=== PATIENT | female | born 1985 | race Caucasian/White ===

== ENCOUNTER 2021-03-26 13:23 | Outpatient (REF) | payer BC, SELFPAY | END 2021-03-26 13:24 | disposition home or self-care (01) | LOC: HO.LNP 13:23 | PROVIDERS: Visit Provider Physician Assistant Medical | DX: Z20.822 Contact with and (suspected) exposure to COVID-19 (principal); J02.9 Acute pharyngitis, unspecified | CPT/HCPCS: 87071; U0003; U0005 ==

== ENCOUNTER 2023-05-26 09:25 | Outpatient (AMB) | payer BC, SELFPAY ==
--- NOTE | 2023-05-26 10:09 | MHC.OFFWIV ---
Intake Vital Signs 05/26/23 10:16 Height 5 ft 2 in Weight 134 lb 6 oz BMI 24.6 BP 122/70 Blood Pressure Location Lt brachial Position Sitting Pulse 76 Pulse Source Pulse Oximeter Temp 97.9 F Temp Source Temporal Artery Scan Pulse Oximetry (%) 99 Intake Visit Reasons: EP RT Knee pain 3 months Intake Note: pt is here for c/o right knee pain for 3x months, denies injury, denies redness or swelling Patient Tobacco Use Status: Never used Tobacco Allergies Sulfa (Sulfonamide Antibiotics) Adverse Reaction (Verified 05/26/23 10:12) rash Do you need a note to return to daycare/school/sports/work: Yes HPI HPI Comments History of Present Illness Details This is a 38-year-old female who presents to the office complaining of right knee pain times 3 months. Patient denies any specific/known trauma or injury to the right knee. She states the pain is mostly located on the medial and posterior aspect of her knee. She states the pain is worsened with extension of her knee as well as rotation/twisting of her knee. She denies any numbness/weakness/paresthesias of her right lower extremity. She denies any calf swelling or calf pain. She denies any erythema of the knee but does note some mild swelling. [facility]LY [facility] Social History Patient Tobacco Use Status: Never used Tobacco Review of Systems Const All systems reviewed & are unremarkable except as noted in HPI and below Reports no additional complaints Eyes Reports no additional complaints ENT Reports no additional complaints Card Reports no additional complaints Resp Reports no additional complaints GI Reports no additional complaints Reports no additional complaints Musc Reports no additional complaints Skin/Breast Reports system reviewed and no additional complaints, except as documented Neuro Reports no additional complaints Psych Reports no additional complaints Endo Reports no additional complaints Ignacio/Lymph Reports no additional complaints Aller/Immun Reports no additional complaints Physical Exam Vital Signs: Last Vital Signs Temp 97.9 F 05/26/23 10:16 Pulse 76 05/26/23 10:16 BP 122/70 05/26/23 10:16 Pulse Ox 99 05/26/23 10:16 BMI result Body Mass Index 24.6 Const Other: Vital signs reviewed. Constitutional: Non-toxic appearing. No acute distress. Well-developed and well-nourished. HEENT: Normocephalic and atraumatic. Skin: Warm and dry. No rashes or lesions noted. Neck: Full and painless range of motion. No cervical lymphadenopathy. Cardio: Regular rate and rhythm. No murmurs, gallops, or rubs. No JVD. Pulmonary: No respiratory distress. No accessory muscle usage. Gastrointestinal: Soft, nontender, and nondistended in all 4 quadrants. Musculoskeletal: There is minimal swelling to the medial aspect of the right knee without ecchymosis or erythema. She has full range of motion of the right knee with pain. There is no significant focal bony tenderness to palpation of the right knee. There is no appreciable ligamentous instability. No calf swelling or tenderness to palpation. Neuro: Alert and oriented x4. Cranial nerves 2-12 grossly intact. No focal deficits appreciated. Psych: Normal mood and affect. Assessment & Plan Assessment & Plan (1) Right knee pain: Code(s): M25.561 - Pain in right knee Qualifiers: Chronicity: chronic Qualified Code(s): M25.561 - Pain in right knee; G89.29 - Other chronic pain Plan: This is a 38-year-old female who presented to the office complaining of right knee pain for the past 3 months without specific trauma/injury. On physical examination, there is minimal swelling to the medial aspect of her right knee and the patient has full but painful range of motion of the right knee. There is no ecchymosis or erythema. Differential diagnosis includes sprain/strain versus ruptured Lopez's cyst versus ligamentous/meniscus injury. An x-ray of the right knee was obtained, which is negative for acute fracture or dislocation on my read. The patient is PERC negative and I have extremely low suspicion for deep vein thrombosis; however, it is possible that patient has a ruptured Lopez's cyst given posterior pain/swelling. A non urgent ultrasound venous duplex of the right lower extremity was ordered for further evaluation. I otherwise recommended rest/activity modification, ice/heatto the area, elevation of the extremity, and continue with acetaminophen/ibuprofen for pain management as long as patient has no medical contraindications. Orthopedic referral was provided for further evaluation and management. Patient was advised to follow-up here or proceed directly to the emergency room if she were to develop any persistent or worsening symptoms. Patient verbalizes her understanding and she is in agreement with the plan. Orders: Orders US venous duplex LE RT Today M79.89 - Other specified soft tissue disorders Coding Level of Care Code Est Pt Level 3 (87421) Diagnoses Chronic pain of right knee M25.561; G89.29 Chronicity: chronic
[2023-05-26 10:16] VITALS: BP 122/70; PULSE 76; TEMP 36.6; O2SAT 99; BMI 24.6
== END 2023-05-26 11:01 | disposition home or self-care (01) ==
PROVIDERS: PCP Internal Medicine; Visit Provider Physician Assistant Medical
DX: M25.561 Pain in right knee (principal); G89.29 Other chronic pain
CPT/HCPCS: 99213

== ENCOUNTER 2023-05-26 10:37 | Outpatient (REF) | payer BC, SELFPAY ==
--- NOTE | ~2023-05-26 | XR_ITS ---
EXAMINATION: XR KNEE, RIGHT CLINICAL INFORMATION: Pain COMPARISON: None available. TECHNIQUE: Four views of the right knee. FINDINGS: No fracture or joint effusion. Alignment is anatomic. Joint spaces are maintained. No abnormal soft tissue calcification. XR/XR knee RT 4V IMPRESSION: Normal right knee.
== END 2023-05-26 10:38 | disposition home or self-care (01) ==
LOC: HO.HMGCX 10:37
PROVIDERS: PCP Internal Medicine; Visit Provider Physician Assistant Medical
DX: M25.561 Pain in right knee (principal)
CPT/HCPCS: 73564

== ENCOUNTER 2023-06-01 14:00 | Outpatient (REF) | payer BC, SELFPAY ==
--- NOTE | ~2023-06-01 | US_ITS ---
EXAMINATION: US EXTREMITY NONVASCULAR, RIGHT POPLITEAL FOSSA CLINICAL INFORMATION: Right posterior knee pain for 3 months, spontaneous, question Lopez's cyst. COMPARISON: None available. TECHNIQUE: Targeted ultrasound images were obtained by the abrasive grader helper of the area of concern as indicated by the patient in the right popliteal fossa. Images were obtained of the asymptomatic left popliteal fossa for comparison. Radiologist was not in attendance. Images were later provided for interpretation. . FINDINGS: No discrete fluid collection is identified in the right popliteal fossa. The popliteal veins and arteries appear patent. No thrombus identified in the right popliteal vein. US/US extremity nonvascular musa IMPRESSION: No discrete fluid collection is identified in the right popliteal fossa.
== END 2023-06-01 14:01 | disposition home or self-care (01) ==
LOC: HO.HMGCX 14:00
PROVIDERS: PCP Internal Medicine; Visit Provider Physician Assistant
DX: M79.604 Pain in right leg (principal)
CPT/HCPCS: 76882

== ENCOUNTER 2023-06-20 07:46 | Outpatient (AMB) | payer BC, SELFPAY ==
--- NOTE | 2023-06-20 07:53 | A.OFFVIS_ITS ---
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 Patient reports knee pain has been present for over 3 months. She [place] [facility] [place] xrays were done and US was obtained. She cannot recall any significant injury. Pain is felt in the posterior aspect of the knee, her pain is felt most of the day but is worse by the end of the day. After being active for most of the day she has increased pain and stiffness after sitting. No previous therapies tried. Occasionally will wear a brace and will take Ibuprofen PRN when pain is significant. 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 She was seen at walk-in clinic where x-rays were performed and US was obtained. She states she has constant pain at the posterior aspect of her knee which gets worse by the end of the day. She performs a lot of climbing, bending, and ladder use at work and experiences increased pain and stiffness on sitting and walking after being active most of the day. She occasionally wears a brace and takes ibuprofen PRN when her pain is significant. She cannot recall any significant injury. She has not tried any previous treatment. She does not have a history of diabetes. [facility] Surgical History (Updated 06/20/23 @ 08:04 by Aimee Restrepo CMA) H/O section History of tonsillectomy Social History (Updated 06/20/23 @ 08:04 by Aimee Restrepo CMA) Patient Tobacco Use Status: Never used Tobacco Current occupational status: employed Current occupation: [employer] Review of Systems Const All systems reviewed & are unremarkable except as noted in HPI and below Physical Exam Vital Signs: BMI result Body Mass Index 24.5 Const General: cooperative, healthy appearing, comfortable, no acute distress, well developed and alert Orientation/consciousness: patient oriented x3 HEENT Head: Yes normal to inspection, Yes normocephalic and Yes atraumatic Eyes General: appearance normal, both eyes and all related structures Resp Effort & Inspection: normal respiratory effort and able to speak in complete sentences Cardio Rate: regular rate Peripheral pulses: Peripheral pulses 2+ throughout GI Palpation (GI): Soft to palpation Skin Lesions: no lesions Rashes: no rashes Neuro General: patient oriented x3 Extrem Other: Right knee: Skin intact, no erythema or joint effusion. Tenderness over the pes bursa. Full ROM without crepitus. Negative Maia?s. No ligamentous laxity. NVI. Results Reviewed Results Reviewed: Xrays were obtained in the office today and personally reviewed by me of the right knee show mild patella overlap. Joint spaces well preserved Assessment & Plan Assessment & Plan (1) Pes anserine bursitis: Code(s): M70.50 - Other bursitis of knee, unspecified knee (2) Patella-femoral syndrome: Code(s): M22.2X9 - Patellofemoral disorders, unspecified knee Qualifiers: Laterality: right Qualified Code(s): M22.2X1 - Patellofemoral disorders, right knee (3) Patellofemoral arthralgia of right knee: Code(s): M25.561 - Pain in right knee Plan We discussed options which include PT, NSAIDs and injections. The patient will defer on the injection today and proceed with PT and NSAIDs. If symptoms persist, the patient will contact me for an injection, otherwise, PRN. Orders: Orders XR knee RT 1V Today M25.561 - Pain in right knee XR knee standing BI Today M25.561 - Pain in right knee, M25.562 - Pain in left knee PT Evaluation and Treatment Today M25.561 - Pain in right knee, M70.50 - Other bursitis of knee, unspecified knee Patient Instructions: Scribed for Kirit Cancino PA-C, by Dami Tanner medical records analyst, on 06/20/2023 at 8:00 AM EST. I, Kirit Cancino PA-C, have personally reviewed and agree with the information entered by the scribe. Coding Level of Care Code New Pt Level 3 (66846) Diagnoses Pes anserine bursitis M70.50 Patellofemoral pain syndrome of right knee M22.2X1 Laterality: right Patellofemoral arthralgia of right knee M25.561
[2023-06-20 08:01] VITALS: BMI 24.5
== END 2023-06-20 08:35 | disposition home or self-care (01) ==
PROVIDERS: PCP Internal Medicine; Visit Provider Physician Assistant
DX: M70.51 Other bursitis of knee, right knee (principal); M22.2X1 Patellofemoral disorders, right knee; M25.561 Pain in right knee
CPT/HCPCS: 99203

== ENCOUNTER 2023-06-20 10:45 | Outpatient (REF) | payer BC, SELFPAY ==
--- NOTE | ~2023-06-20 | XR_ITS ---
EXAMINATION: X-RAY AP STANDING BOTH KNEES X-RAYS [place] VIEW RIGHT KNEE CLINICAL INFORMATION: Pain. COMPARISON: Radiograph right knee to 07/11/2023. TECHNIQUE: AP bilateral standing view of the knees was obtained. [place] view of the right knee was obtained. FINDINGS: No fractures or subluxation. Joint spaces are maintained. No osseous erosions or unusual soft tissue calcifications. No significant soft tissue abnormality. XR/XR knee RT 1V IMPRESSION: Normal radiographic examinations.
--- NOTE | ~2023-06-20 | XR_ITS ---
EXAMINATION: X-RAY AP STANDING BOTH KNEES X-RAYS [place] VIEW RIGHT KNEE CLINICAL INFORMATION: Pain. COMPARISON: Radiograph right knee to 07/11/2023. TECHNIQUE: AP bilateral standing view of the knees was obtained. [place] view of the right knee was obtained. FINDINGS: No fractures or subluxation. Joint spaces are maintained. No osseous erosions or unusual soft tissue calcifications. No significant soft tissue abnormality. XR/XR knee standing BI IMPRESSION: Normal radiographic examinations.
== END 2023-06-20 10:46 | disposition home or self-care (01) ==
LOC: HO.HOSX 10:45
PROVIDERS: Visit Provider Physician Assistant
DX: M22.2X1 Patellofemoral disorders, right knee (principal); M25.561 Pain in right knee
CPT/HCPCS: 73560; 73565

== ENCOUNTER 2025-02-13 14:42 | Outpatient (AMB) | payer BC, SELFPAY ==
--- NOTE | 2025-02-13 14:55 | MHC.PC.OV ---
Vital Signs 02/13/25 15:00 Height 5 ft 3.46 in Weight 132 lb 8 oz BMI 23.1 BP 132/78 Blood Pressure Location Lt brachial Position Sitting Pulse 97 Pulse Source Pulse Oximeter Temp 97.4 F Temp Source Temporal Artery Scan Pulse Oximetry (%) 99 Oxygen Delivery Method Room Air Intake Visit Reasons: Establish Care Allergies Sulfa (Sulfonamide Antibiotics) Adverse Reaction (Verified 02/13/25 15:13) rash Medication List - Last Reconciled 02/13/25 by Glenny Espinoza PA-C No Known Home Meds Tobacco use date assessed: 02/13/25 Dental Screening Dental Screen Date: 02/13/25 Did you have a dental visit in the last 12 months?: Yes Was dental information given to patient?: Patient has dentist HPI Establish Care HPI Details The patient is a 40-year-old female presenting for an annual physical exam in addition to evaluate her fatigue. The patient reports persistent fatigue, feeling tired regardless of sleep duration or quality. She has not had a physical examination in approximately nine years, attributing this to being busy with family responsibilities. The patient has a history of section and tonsillectomy, with no other significant medical history reported. The patient expresses concerns about potential ADHD, particularly after her son was diagnosed, and she relates to some of his symptoms. She experiences anxiety, which she suspects may be linked to her inability to shut her brain off. Family history includes hypertension and prostate cancer in her father, with no known history of breast or colon cancer. The patient denies any allergies except for sulfa drugs. Preventative care measures discussed include scheduling a mammogram and considering an early colonoscopy due to lifelong abdominal issues, although these have improved recently with dietary changes. Social History - Employment: Works at [employer], involves physical activity such as climbing ladders. - Family: with two children, ages 14 and 9. - Exercise: Regular physical activity through work duties. [facility] Medical History (Updated 02/13/25 @ 15:44 by Glenny Espinoza PA-C) Preventative health care ADHD Fatigue Annual physical exam Anxiety Surgical History H/O section History of tonsillectomy Family History Mother HTN (hypertension) Father Prostate cancer Social History Housing: House Patient Tobacco Use Status: Never used Tobacco service: No Current occupational status: employed Current occupation: [employer] Cognitive needs: No Hearing needs: No Vision needs: Yes (rx glasses) Questionnaire PHQ-9 Over the last 2 weeks, how often have you been bothered by any of the following problems? 1. Little interest or pleasure in doing things: several days 2. Feeling down, depressed, or hopeless: several days 3. Trouble falling or staying asleep, or sleeping too much: more than half the days 4. Feeling tired or having little energy: nearly every day 5. Poor appetite or overeating: not at all 6. Feeling bad about yourself - or that you are a failure or have let yourself or your family down: not at all 7. Trouble concentrating on things, such as reading the newspaper or watching television: more than half the days 8. Moving or speaking so slowly that other people could have noticed. Or the opposite - being so fidgety or restless that you have been moving around a lot more than usual: not at all 9. Thoughts that you would be better off or of hurting yourself in some way: not at all Total score: 9 Depression Screening Interpretation: Positive Depression Screening Follow-up: Other (referral placed ) Depression Screening Done: Yes 66807 - PHQ-9 Billing: Yes Source: Developed by Drs. Tremayne Stinson, Wanda Andrews, Robert Moses and colleagues, with an educational curt from [employer]. Thrive Questionnaire Date Thrive assessed: 02/13/25 I am a: Patient What is your living situation today?: I have a steady place to live Within the past 12 months, did the food you bought not last and you didn't have the money to get more?: Never true Within the past 12 months, did you worry whether your food would run out before you got money to buy more?: Never true Do you have trouble paying for medicines?: No Do you have trouble getting transportation to medical appointments?: No Do you have trouble paying your heating and electricity bill?: No Do you have trouble taking care of your child, family member or friend?: No Do you have trouble with day-to-day activities such as bathing, preparing meals, shopping, managing finances, etc.?: No Are you currently unemployed and looking for a job?: No Are you interested in more education?: No Please select the resources that you would like help with: None THRIVE Score: 0 AUDIT C Alcohol Use Questionnaire (AUDIT-C) 1. How often do you have a drink containing alcohol?: Never Total Score: 0 Score Reviewed/Action Taken: No GLENDY-7 AMB Questionnaire GLENDY-7 Date GLENDY - 7 assessed: 02/13/25 Feeling nervous, anxious, or on edge: 2 = More than half the days Not being able to stop or control worryin = More than half the days Worrying too much about different things: 2 = More than half the days Trouble relaxin = More than half the days Being so restless that it is hard to sit still: 1 = Several days Becoming easily annoyed or irritable: 2 = More than half the days Feeling afraid as if something awful might happen: 1 = Several days Total GLENDY-7 score (0-4 normal; 5-9 mild; 10-14 moderate; 15-21 severe): 12 Source: Developed by Drs. Tremayne Stinson, Wanda Andrews, Robert Moses and colleagues, with an educational curt from [employer]. GLENDY-7 Assessment Billing GLENDY-7 Assessment Tool: GLENDY-7 Assessment 23494 Review of Systems Const Details: - General: Reports persistent fatigue. - Cardiovascular: Reports palpitations during physical exertion. Denies chest pain or syncope. - Respiratory: Denies dyspnea or wheezing. - Neurological: Reports difficulty shutting brain off, possibly related to anxiety. - Gastrointestinal: Reports lifelong abdominal issues, improved with dietary changes. All systems reviewed & are unremarkable except as noted in HPI and below Physical exam (Primary Care) Vital Signs: Last Vital Signs Temp 97.4 F 02/13/25 15:00 Pulse 97 02/13/25 15:00 BP 132/78 02/13/25 15:00 Pulse Ox 99 02/13/25 15:00 Oxygen Delivery Method Room Air 02/13/25 15:00 Care Plan Goal for BP management: <140/90 at Goal BMI result Body Mass Index 23.1 normal BMI Tobacco/Smoking Status: Tobacco use Status Tobacco use date assessed 02/13/25 02/13/25 14:59 Patient Tobacco Use Status Never used Tobacco 02/13/25 14:59 Depression Screening Interpretation: Positive Depression Screening Follow-up: Other (referral placed ) Thrive Assessment: Date of Thrive Assessment Date Thrive assessed 02/13/25 02/13/25 14:59 Const Other: Appearance: Alert. Oriented X3. No acute distress. Head: Normal external exam. Normocephalic. Atraumatic. Eyes: Pupils are equal, round, and reactive to light. Extraocular movements intact. Conjunctiva and sclera normal. Eyelids normal. Ears: External auditory canal normal. Tympanic membranes normal. Minimal wax noted. Throat: Pharynx normal. Uvula midline. Moist mucous membranes. No trouble swallowing. Neck: Normal inspection. Neck supple. Full range of motion. No adenopathy. Thyroid Normal. No meningeal signs. No neck mass noted. No nodules felt. Cardiovascular: Heart rate elevated but normal rhythm. Heart sound normal. No murmurs noted. Pulses normal throughout. Respiratory: No respiratory distress. Painless inspiration. Breath sounds normal. No wheezes/rales/rhonchi noted. Chest nontender. No accessory muscle usage noted or decreased air movement noted. Abdomen: Soft and nontender. Bowel sounds normal in all 4 quadrants. No distention noted. No organomegaly noted. No visible injury noted. Back: No costovertebral angle tenderness. Full range of motion noted. Skin: Skin warm and dry. Normal skin color. Normal skin turgor. No rashes/lesions/lacerations noted. Extremities: No lower extremity edema. Extremities exhibit normal range of motion. Extremities nontender. No swelling or calf tenderness. Neuro: Oriented X 3. No motor deficit. No sensory deficit. Reflexes normal. Office Procedures Flu Questionnaire Does the patient have a severe egg allergy?: No Does the patient have severe life threatening allergies?: No Does the patient have a fever or illness today?: No Has the patient ever had Guillain-Loretto Syndrome?: No Has the patient ever had any past reaction to a flu shot?: No Immunizations Fluarix [id number] (PF) 45 mcg (15 mcg x 3)/0.5 mL IM syringe Performing Provider: Glenny Espinoza PA-C Performing Location: [facility] – [place] [facility] Administered by: Estelita Lilly CMA on 02/13/25 15:10 Dose Route Admin Location Dispensed Lot Number Expiration Date NDC Habilitation Worker 0.5 mL IM Left Deltoid 0.5 mL [id number] 10/20/25 [id number] [employer] VIS Given Date VIS Provided VIS Publication Date 02/13/25 Single Vaccine 24 Eligibility Eligibility Date Funding Source Not [facility] Eligible 02/13/25 Private Coding Level of Care Code New Pt Level 4 (19695) New Pt Prev Care 40-64y(11985) Diagnoses Annual physical exam Z00. Fatigue R53.83 Anxiety F41.9 ADHD F90.9 Preventative health care Z00. Additional Codes PHQ-9 - 53742 - PHQ-9 Billing: Yes ([id number]) GLENDY-7 Assessment Billing - GLENDY-7 Assessment Tool: GLENDY-7 Assessment 16708 ([id number]) Assessment & Plan Assessment & Plan (1) Annual physical exam: Code(s): Z00.00 - Encounter for general adult medical examination without abnormal findings Category: Medical (2) Fatigue: Code(s): R53.83 - Other fatigue Category: Medical Plan: The plan includes comprehensive blood work to assess potential causes of fatigue, including CBC, CMP, thyroid function tests, and hormone levels. Additional tests include Lyme disease screening and a urinalysis to check for blood, protein, and glucose. (3) Anxiety: Code(s): F41.9 - Anxiety disorder, unspecified Category: Medical Plan: The patient will be referred to a psychiatrist for evaluation and management of anxiety, with consideration of ADHD assessment. (4) ADHD: Code(s): F90.9 - Attention-deficit hyperactivity disorder, unspecified type Category: Medical Plan: Referral to a psychiatrist for ADHD assessment is planned, with follow-up based on the psychiatrist's recommendations. (5) Preventative health care: Code(s): Z00.00 - Encounter for general adult medical examination without abnormal findings Category: Medical Plan: A mammogram is recommended as part of routine preventative care due to the patient's age. A referral for a colonoscopy is considered due to the patient's history of abdominal issues, despite recent improvement with dietary changes. Plan Plan Patient was informed and verbally consented to the use of an ambient scribe for clinic note documentation during this visit. 1. Fatigue The plan includes comprehensive blood work to assess potential causes of fatigue, including CBC, CMP, thyroid function tests, and hormone levels. Additional tests include Lyme disease screening and a urinalysis to check for blood, protein, and glucose. 2. Anxiety The patient will be referred to a psychiatrist for evaluation and management of anxiety, with consideration of ADHD assessment. 3. Adhd Assessment Referral to a psychiatrist for ADHD assessment is planned, with follow-up based on the psychiatrist's recommendations. 4. Preventative Care: Mammogram A mammogram is recommended as part of routine preventative care due to the patient's age. 5. Preventative Care: Colonoscopy A referral for a colonoscopy is considered due to the patient's history of abdominal issues, despite recent improvement with dietary changes. During the visit, we discussed the patient's persistent fatigue and the need for comprehensive blood work to identify potential causes, including thyroid function and hormone levels. We also addressed the patient's concerns about anxiety and potential ADHD, leading to a referral for psychiatric evaluation. Preventative care measures, including a mammogram and possible early colonoscopy, were recommended based on age and medical history. Orders: Orders Complete Blood Count Auto Diff Today Z00.00 - Encounter for general adult medical examination without abnormal findings Hemoglobin A1c Today Z00.00 - Encounter for general adult medical examination without abnormal findings Lipid Panel Today Z00.00 - Encounter for general adult medical examination without abnormal findings Liver Panel Today Z00.00 - Encounter for general adult medical examination without abnormal findings Vitamin D 25-OH Total Today Z00.00 - Encounter for general adult medical examination without abnormal findings TSH reflex Free T4 Today Z00.00 - Encounter for general adult medical examination without abnormal findings UA CC w/rflx Micro + Cult Today Z00.00 - Encounter for general adult medical examination without abnormal findings Testosterone, Free/Total Today Z00.00 - Encounter for general adult medical examination without abnormal findings Progesterone Today Z00.00 - Encounter for general adult medical examination without abnormal findings Lyme IgG/IgM w/reflex to WB Today Z00.00 - Encounter for general adult medical examination without abnormal findings Influenza [id number] Immunization Today Z23 - Encounter for immunization C Reactive Protein Today Z00.00 - Encounter for general adult medical examination without abnormal findings Comprehensive [place]. Panel Fast Today Z00.00 - Encounter for general adult medical examination without abnormal findings Magnesium Today Z00.00 - Encounter for general adult medical examination without abnormal findings Vitamin B12 and Folate Today Z00.00 - Encounter for general adult medical examination without abnormal findings DHEA Sulfate Today Z00.00 - Encounter for general adult medical examination without abnormal findings Dihydrotestosterone Today Z00.00 - Encounter for general adult medical examination without abnormal findings Estrogen Today Z00.00 - Encounter for general adult medical examination without abnormal findings Lutenizing Hormone Today Z00.00 - Encounter for general adult medical examination without abnormal findings Prolactin Today Z00.00 - Encounter for general adult medical examination without abnormal findings MM screening mammo BI Today Z12.31 - Encounter for screening mammogram for malignant neoplasm of breast Referrals Psychiatry Outpatient Consultation Service F41.9 - Anxiety disorder, unspecified Gastroenterology Referral Z12.11 - Encounter for screening for malignant neoplasm of colon Patient Instructions: - Schedule and complete blood work as instructed, ensuring fasting for 10-12 hours prior. - Await contact from referred specialists for psychiatric evaluation and colonoscopy scheduling. - Follow up with the clinic if no contact is made within the expected timeframe. - Maintain current dietary changes that have improved abdominal symptoms.
[2025-02-13 15:00] VITALS: BP 132/78; PULSE 97; TEMP 36.3; O2SAT 99; BMI 23.1
== END 2025-02-13 15:29 | disposition home or self-care (01) ==
LOC: HO.HMCSH 14:42
PROVIDERS: PCP Physician Assistant Medical; Visit Provider Physician Assistant Medical
DX: Z00.00 Encounter for general adult medical examination without abnormal findings (principal); R53.83 Other fatigue; F41.9 Anxiety disorder, unspecified; F90.9 Attention-deficit hyperactivity disorder, unspecified type; Z23 Encounter for immunization

== ENCOUNTER → 2025-02-13 14:42 | Outpatient (BNVA) | payer BC, SELFPAY | PROVIDERS: PCP Physician Assistant Medical; Visit Provider Physician Assistant Medical | DX: Z00.00 Encounter for general adult medical examination without abnormal findings (principal); R53.83 Other fatigue; I10 Essential (primary) hypertension; F41.9 Anxiety disorder, unspecified; F90.9 Attention-deficit hyperactivity disorder, unspecified type; Z23 Encounter for immunization | CPT/HCPCS: 90471; 90656; 96127 ==

== ENCOUNTER 2025-02-19 10:26 | Outpatient (REF) | payer BC, SELFPAY | END 2025-02-19 10:27 | disposition home or self-care (01) | LOC: HO.MAMMO 10:26 | PROVIDERS: PCP Physician Assistant Medical; Visit Provider Physician Assistant Medical | DX: Z12.31 Encounter for screening mammogram for malignant neoplasm of breast (principal) | CPT/HCPCS: 77063; 77067 ==

== ENCOUNTER → 2025-02-19 10:45 | Outpatient (BNV) | payer BC, SELFPAY | PROVIDERS: PCP Physician Assistant Medical; Visit Provider Radiology Body Imaging | DX: Z12.31 Encounter for screening mammogram for malignant neoplasm of breast (principal) | CPT/HCPCS: 77063; 77067 ==

== ENCOUNTER 2025-02-21 10:30 | Outpatient (REF) | payer BC, SELFPAY ==
[2025-02-21 13:29] LABS: MANUAL DIFF FLAG NO
[2025-02-21 13:33] LABS: Hematocrit 40.0 % (37.0-47.0); Hemoglobin 13.2 g/dl (12.0-16.0); Imm Gran Abs Auto 0.02 X10*3/uL (0.00-0.03); Imm Gran Pct Auto 0.4 % (0.0-0.4); Lymphocytes Absolute Auto 1.8 X10*3/uL (1.2-4.9); Mean Corpuscular HGB Conc 33.0 g/dl (31.0-35.0); Mean Corpuscular Hemoglobin 29.5 pg (27.0-33.0); Mean Corpuscular Volume 89.5 fL (80.0-98.0); NRBC Abs Auto 0.000 X10*3/uL (0.0-0.012); NRBC Pct Auto 0.0 /100WBC (0.0-0.2); Platelet Count 318 X10*3/uL (160-400); Red Blood Count 4.47 X10*6/uL (4.20-5.50); White Blood Count 5.6 X10*3/uL (4.8-10.8)
[2025-02-21 13:43] LABS: Appearance Urine Clear; Glucose Urine UA Negative (Negative); PH 6.0 (5.0-9.0); Specific Gravity - Urine <= 1.005 (1.005-1.025)
[2025-02-21 13:56] LABS: Alanine Aminotransferase 14 U/L (0-31); Albumin Level 4.8 g/dL (3.5-5.0); Alkaline Phosphatase 60 U/L (39-117); Anion Gap 11 (12-20); Aspartate Amino Transferase 16 U/L (5-31); Blood Urea Nitrogen 13 mg/dL (9-16); Calcium 8.9 mg/dL (8.4-10.2); Carbon Dioxide 26 mmol/L (22-29); Chloride 106 mmol/L (96-108); Cholesterol 199 mg/dL (<200); Estimated Glomerular Filt Rate > 60; HDL Cholesterol 67 mg/dL (>40); Magnesium 2.2 mg/dL (1.6-2.6); Potassium 4.2 mmol/L (3.3-5.1); Sodium 139 mmol/L (135-145); Total Protein 7.2 g/dL (6.5-8.0); Triglycerides 54 mg/dL (<150)
[2025-02-21 14:29] LABS: Folate 6.6 ng/mL (> or = 4.0); Vitamin B12 610 pg/mL (200-900)
[2025-02-24 03:08] LABS: Lyme Abs Screen <0.90 index
[2025-03-07 19:13] LABS: Testosterone, Free 2.5 pg/mL (0.1-6.4)
== END 2025-02-21 10:31 | disposition home or self-care (01) ==
LOC: HO.HMGCLDS 10:30
PROVIDERS: PCP Physician Assistant Medical; Visit Provider Physician Assistant Medical
DX: Z00.00 Encounter for general adult medical examination without abnormal findings (principal); Z13.6 Encounter for screening for cardiovascular disorders; Z13.1 Encounter for screening for diabetes mellitus; Z13.29 Encounter for screening for other suspected endocrine disorder; Z13.0 Encounter for screening for diseases of the blood and blood-forming organs and certain disorders involving the immune mechanism
CPT/HCPCS: 36415; 80053; 80061; 80076; 81003; 82248; 82306; 82607; 82627; 82642; 82672; 82746; 83002; 83036; 83735; 84144; 84146; 84402; 84403; 84443; 85025; 86140; 86617; 86618

== ENCOUNTER 2025-02-28 07:40 | Outpatient (REF) | payer BC, SELFPAY | END 2025-02-28 07:41 | disposition home or self-care (01) | LOC: HO.HMGCLDS 07:40 | PROVIDERS: PCP Physician Assistant Medical; Visit Provider Physician Assistant Medical | DX: Z00.00 Encounter for general adult medical examination without abnormal findings (principal) | CPT/HCPCS: 36415; 84146 ==

== ENCOUNTER 2025-03-11 13:48 | Outpatient (REF) | payer BC, SELFPAY ==
--- NOTE | ~2025-03-11 | MM_ITS ---
EXAMINATION: MM DIAGNOSTIC DIGITAL MAMMOGRAPHY, LEFT CLINICAL INFORMATION: Call back from screening for left breast grouped calcifications. COMPARISON: Mammography: [facility] on PACS. TECHNIQUE: Digital mammography is performed in craniocaudal and mediolateral oblique views along with computer-aided detection (CAD). FINDINGS: The breasts are heterogeneously dense, which may obscure small masses. There are grouped amorphous calcifications in the retroareolar region anterior depth. There are grouped calcifications in the retroareolar region posterior depth some of which may layer on ML magnification views. No suspicious masses or other abnormal findings. Results are discussed with the patient at time of visit. MM/MM diagnostic mammo unilat LT IMPRESSION: Left: 1. Grouped calcifications in the retroareolar region anterior depth. Recommend histology with stereotactic core needle biopsy at this time. The findings and recommendations were discussed with the patient the procedure will be scheduled. 2. Grouped calcifications in the retroareolar region posterior depth some of which layer on ML magnification views. Recommendation for follow-up versus biopsy will be made after pathology is obtained from the above biopsy to include at least a six-month follow-up with magnification views. ASSESSMENT: BI-RADS Category 4: Suspicious RECOMMENDATION: Biopsy recommended This patient's information was entered into a reminder system with a target due date for their next mammogram. Electronically signed by: Juana Mukherjee DO 03/12/2025 12:16 PM LOLIS STEWART
== END 2025-03-11 13:49 | disposition home or self-care (01) ==
LOC: HO.MAMMO 13:48
PROVIDERS: PCP Physician Assistant Medical; Visit Provider Physician Assistant Medical
DX: R92.1 Mammographic calcification found on diagnostic imaging of breast (principal)
CPT/HCPCS: 77062; 77065

== ENCOUNTER → 2025-03-11 14:00 | Outpatient (BNV) | payer BC, SELFPAY | PROVIDERS: PCP Physician Assistant Medical; Visit Provider Internal Medicine | DX: R92.1 Mammographic calcification found on diagnostic imaging of breast (principal) | CPT/HCPCS: 77065; G0279 ==

== ENCOUNTER 2025-03-31 15:15 | Outpatient (AMB) | payer BC, SELFPAY ==
--- NOTE | 2025-03-31 15:32 | MHC.OFFVISPS ---
Intake Intake Visit Reasons: consultation [employer] Required: No Allergies Sulfa (Sulfonamide Antibiotics) Adverse Reaction (Verified 02/13/25 15:13) rash Medication List - Last Reconciled 03/31/25 by Aimee Bishop APRN rosuvastatin (Crestor) 10 mg PO BEDTIME HPI- Psychiatric Chief Complaint: consultation HPI Narrative: Pt referred by PCP re: concerns for ADHD. Pt noticed after receiving her son's diagnosis that she experiences a lot of the same symptoms. Pt stated she feels as if she has trouble shutting off her brain, and is unsure if this is related to anxiety or ADHD. Pt is in need of a diagnostic evaluation and initiation of medications, as appropriate. Pt reports that as far back as elementary school she had difficulty with concentration, focus, forgetfulness, distraction, being overly chatty, and called a social butterfly. In high school she experienced the same symptoms; she recalls having to drop out of a an advanced Ukrainian class because she couldn't concentrate enough to read the novels the class required. 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 She works at [employer] for last 20yrs whichis a fairly active job. At home she has trouble sitting still, trouble with constantly on the go, starting multiple projects at once before one thing is finished; She feels she can not turn her brain off; She gets very tired from the constant thoughts. she is anxious and worries. she can be easily over stimulated and become irritable. Her PHQ9= 11 and her GAD7=13. Her ASRS-v1.1 score is 15/18 - this is an adult self reports scale fro ADHD. She is positive for all 6 core ADHD symptoms and 9/11 of the supporting symptoms; scoring 15 out of 18 overall. Past Psychiatric History: no past treatment; no therapy, no meds, no IPLOC Subjective Subjective Medication Compliance: Yes Side effects from medications: No Review of Systems Medical Review of Systems: unchanged Mental Status Exam Mental Status Exam Patient Appearance: Well Grooomed and Appropriate Patient Orientation: Person, Place, Time and Situation Level of Consciousness: Awake, Appropriate and Alert Patient Behavior: Appropriate, Restless and Good Eye Contact Mood Description: Appropriate and Anxious Affect Description: Appropriate and Anxious Patient Cognition Impaired: No Ability to Follow Directions: Good Speech Pattern: Clear and Appropriate Memory Description: Intact Hallucinations: None Delusions: Not Present Thought Process: Intact, Distracted and Goal Oriented Thought Content: positive for Intact and positive for Goal Oriented Judgement: Fair Assessment and Plan Assessment & Plan (1) ADHD (attention deficit hyperactivity disorder), combined type: Status: Acute Code(s): F90.2 - Attention-deficit hyperactivity disorder, combined type Plan trial of Ritalin 10mg BID and may increase to 15-20mg BID if no results plan to switch to long acting Concerta if tolerates the Ritalin Medications: New methylphenidate HCl (Ritalin) Partial Fill upon patient request. 10 mg PO BID 60 tabs 0RF F90.2 - Attention-deficit hyperactivity disorder, combined type Counseling and coordination of Care Pt. Self Management counseling: Maintenance-social rhythm, Mod caffeine/ETOH intake and Nutrition education and improvement Medication management counseling: Effectiveness, Side effects, Dosing range, Duration, Drug interaction and Adherence Diagnosis and Prognosis Counseling: Accuracy of diagnosis, Prognosis over time, Impact of diagnosis on life functions, Impact of family relationship, Problematic behaviors secondary to diagnosis and Adequacy of current interventions Details: I spent 55 minutes reviewing the record, seeing the patient and documenting in the medical record. Counseling provided to the patient/caregiver as outlined below. Addressed patient/caregiver concerns regarding current medication regime including effective adherence. Addressed patient/caregiver concerns regarding diagnosis and prognosis including accuracy of diagnosis, prognosis over time, impact of diagnosis. Addressed patient/caregiver concerns regarding impact of recent stressors. [facility] Medical History (Updated 03/31/25 @ 16:13 by Aimee Bishop APRN) History of mammogram (~03/12/25) Elevated prolactin level Hyperlipidemia Preventative health care ADHD Fatigue Annual physical exam Anxiety Surgical History H/O section History of tonsillectomy Family History Mother HTN (hypertension) Father Prostate cancer Social History Housing: House Patient Tobacco Use Status: Never used Tobacco service: No Current occupational status: employed Current occupation: [employer] Cognitive needs: No Hearing needs: No Vision needs: Yes (rx glasses) Coding Level of Care Code Psych Diag Eval w/Med (89181) Diagnoses ADHD (attention deficit hyperactivity disorder), combined type F90.2
== END 2025-03-31 16:12 | disposition home or self-care (01) ==
LOC: HO.HOP 15:15
PROVIDERS: PCP Physician Assistant Medical; Visit Provider Clinical Nurse Specialist Psychiatric/Mental Health
DX: F90.2 Attention-deficit hyperactivity disorder, combined type (principal)
CPT/HCPCS: 90792

== ENCOUNTER → 2025-03-31 15:15 | Outpatient (BNVA) | payer BC, SELFPAY | PROVIDERS: PCP Physician Assistant Medical; Visit Provider Clinical Nurse Specialist Psychiatric/Mental Health | DX: F90.2 Attention-deficit hyperactivity disorder, combined type (principal) | CPT/HCPCS: 90792 ==

== ENCOUNTER 2025-04-02 07:57 | Outpatient (AMB) | payer BC, SELFPAY ==
--- NOTE | 2025-04-02 08:01 | A.OFFVIS_ITS ---
Vital Signs 04/02/25 08:07 Height 5 ft 3.46 in Weight 133 lb BMI 23.2 Intake Visit Reasons: Steriotactic Biopsy, left br calcification Intake Note: Patient presents for stereotactic breast biopsy consult for left breast calcifications. Pt c/o: denies pain or tenderness, denies discharge from nipples, denies change of shape or size of breasts. Operations Professional Required: No Accompanied by: Self / Same As Patient Allergies Sulfa (Sulfonamide Antibiotics) Adverse Reaction (Verified 04/02/25 08:09) rash Medication List - Last Reconciled 04/02/25 by Jacob Jim MD methylphenidate HCl (Ritalin) 10 mg PO BID rosuvastatin (Crestor) 10 mg PO BEDTIME HPI HPI Steriotactic Biopsy, left br calcification: Details: 40 year old female referred for left breast calcifications. She had a mammogram done last month screening and this showed grouped calcifications left breast. This were confirmed on a diagnostic mammogram. There was a 2nd group of calcifications in the more posterior area of the left breast as well. She denies any palpable mass Her menarche was at age of 12. She had her 1st at the age of 26. She had 2 pregnancies. She still has her periods. She does not have any significant family history of breast cancer. [facility] Medical History Breast calcification, left History of mammogram (~03/12/25) Elevated prolactin level Hyperlipidemia Preventative health care ADHD Fatigue Annual physical exam Anxiety Surgical History H/O section History of tonsillectomy Family History Mother HTN (hypertension) Father Prostate cancer Social History Housing: House Patient Tobacco Use Status: Never used Tobacco service: No Current occupational status: employed Current occupation: [employer] Cognitive needs: No Hearing needs: No Vision needs: Yes (rx glasses) Female Reproductive History Menstrual Age of Menarche: 12 Total pregnancies: 2 Review of Systems Const Denies chills and Denies fever(s) Card Denies chest pain, Denies dyspnea and Denies dyspnea on exertion Resp Denies cough, Denies dyspnea and Denies dyspnea on exertion GI Denies hematochezia and Denies change in bowel habits Denies hematuria Musc Denies back pain and Denies limited range of motion Neuro Denies focal weakness and Denies convulsions Psych Denies depression and Denies mood swings Physical Exam Vital Signs: BMI result Body Mass Index 23.2 Const General: comfortable and no acute distress Orientation/consciousness: patient oriented x3 Neck Neck: Yes no lymphadenopathy Chest Other: No palpable breast masses, no nipple or skin changes, axillary lymphadenopathy Resp Auscultation: clear to auscultation bilaterally Cardio Rhythm: regular rhythm GI Palpation (GI): Soft to palpation, nontender and no guarding Neuro General: patient oriented x3 Assessment & Plan Assessment & Plan (1) Breast calcification, left: Code(s): R92.1 - Mammographic calcification found on diagnostic imaging of breast Category: Medical Plan: She was noted to have grouped calcification on the left breast and a stereotactic biopsy had been recommended by the radiologist for this. I explained to her the technique of this procedure. I will see her again in the office next week to discuss the path report There was a 2nd group of calcifications more posteriorly in the same breast. As per the radiologist, this may be managed with either follow up mammogram or biopsy as well depending on the path report for the more anterior group of calcifications. Orders: Orders MM stereotactic biopsy LT 04/01/25 R92.1 - Mammographic calcification found on diagnostic imaging of breast Coding Level of Care Code New Pt Level 3 (40518) Diagnoses Breast calcification, left R92.1
--- OUTSIDE RECORDS SUMMARY | 2025-04-02 08:05 | XMS_ITS | Clinical Summary ---
Author Organization [facility] Prior to 02/22/2024 Address [address] [place] [address] Care Team Providers Care Student Services Counselor Name Role Phone Lucia Chávez MD Primary Care Provider [phone] Allergies Active Allergy Reactions Severity Noted Date Comments Sulfa Drugs 07/08/2009 Medications No known medications Active Problems Problem Noted Date Polycystic ovarian syndrome 12/20/2009 Overview: Irregular menses, mild elevation of serum testosterone, polycystic ovaries on US. Resolved Problems Problem Noted Date Resolved Date Positive GBS test 02/08/2015 02/26/2015 Previous delivery, antepartum condition or complication 08/13/2014 04/02/2015 Overview: Repeat C/S 02/26/15 Supervision of other normal 08/06/2014 02/26/2015 Overview: Previous C/S. ICEF on US, Sequential Screen - normal (Down's risk 1:9000) 1. [facility] site: [facility] 2. Delivery site: [facility] 3. Dating criteria: LMP confirmed by 1st trimester ultrasound 3. Blood type: A+ 4. Genetic screening: Date: 08/24/14 Result: Normal nuchal lucency 5. GBS: Date: 02/06-pos 6. FOB name: Alex 7. Plans A. Epidural or other pain management - B. Labor support identified - Alex Alejandro Tdap - Date: 02/04/2015 Flu vaccine 01/04/15 D. Breast or Bottle feed: Bottle E. Baby's name - Alex Lassiter Circumcision - yes IMO update Group B Streptococcus michael r, +RV culture, currently 11/16/2010 01/25/2011 Anemia 10/26/2010 12/29/2010 Family history of seizures 09/08/201001/25 Overview: Have evaluated after Placenta succenturiata 07/14/2010 1 Overview: Level 2 FU Normal placenta with connecting lobes In fundus Supervision of normal first 05/17/2010 12/29/2010 Overview: [facility] Infertility, clomiphene induced ovulation FOB Monty Singeria . Amenorrhea 09/23/2009 01/25/2011 Immunizations Name Administration Dates Next Due Influenza (> 6 Months) 12/29/2010,04/11/2010 Influenza (>6 Months) Split Preservative Free Tdap 02/04/2015,07/30/2009 Family History Medical History Relation Name Comments Cholesterol Level Father Diabetes Maternal Grandfather UT Maternal Grandfather UT X3, Diabetes Maternal Grandmother UT Paternal Grandfather seizure Sister 2 CA Breast Negative Hx CA Colon Negative Hx CA Ovarian Negative Hx Relation Name Status Comments Father Alive Maternal Grandfather Maternal Grandmother Alive Mother Alive Paternal Grandfather Paternal Grandmother Alive Sister 1 Alive Sister 2 Social History Tobacco Use Types Packs/Day Years Used Date Smoking Tobacco: Never Smokeless Tobacco: Never Alcohol Use Standard Drinks/Week Comments No 0 (1 standard drink = 0.6 oz pur e alcohol) Sex Assigned at Date Recorded Not on file Last Filed Vital Signs Vital Sign Reading Time Taken Comments Blood Pressure 90/62 10/20/2019 3:22 PM EDT Pulse 89 10/20/2019 3:22 PM EDT Temperature 36.7 C (98 F) 10/20/2019 3:22 PM EDT Respiratory Rate 16 10/20/2019 3:22 PM EDT Oxygen Saturation 97% 01/04/2012 10:50 AM EDT Inhaled Oxygen Concentration - - Weight 58 kg (127 lb 12.8 oz) 10/20/2019 3:22 PM EDT Height 157.5 cm (5' 2 ) 10/20/2019 3:22 PM EDT Body Mass Index 23.37 10/20/2019 3:22 PM EDT Plan of Treatment Health Maintenance Due Date Last Done Comments Covid-19 Vaccine (#1) 1984 CHOLESTEROL SCREENING 09/24/2014 09/24/2009 CERVICAL CANCER SCREENING 05/04/20202017, 04/29/2014, 02/27/2012, Additional history exists BASELINE HEALTH EXAM 40-64 01/06/202407/24, 09/24/2009, 07/30/2009 MAMMOGRAM 2024 INFLUENZA (#1) 2024 01/04/2015, 11/2010, 04/11/2010 DTAP/TDAP/TD (3 - Td or Tdap) 02/04/2025 02/04/2015, 07/30/2009 PNEUMOCOCCAL VACCINE FOR HIG H RISK PATIENTS (#1) 01/05/2049 Care Teams Student Services Counselor Relationship Specialty Start Date End Date Lucia Chávez MD [address] [place] [id number] PCP - General 06/21/09
--- OUTSIDE RECORDS SUMMARY | 2025-04-02 08:05 | XMS_ITS | Encounter Summary ---
Author Organization [facility] Prior to 02/22/2024 Address [address] [place] [address] Care Team Providers Care Building Supplies Salesperson Retail Name Role Phone Lucia Chávez MD Primary Care Provider [phone] Reason for Visit * Reason Onset Date Comments refill request 02/21/2013 Encounter Details Date Type Department Care Team Description 02/21/2013 Refill OBGYN - [place] [address] [place] [id number] Jani Cowan MD refill request Social History Tobacco Use Types Packs/Day Years Used Date Smoking Tobacco: Never Smokeless Tobacco: Never Alcohol Use Standard Drinks/Week Comments No 0 (1 standard drink = 0.6 oz pur e alcohol) Sex Assigned at Date Recorded Not on file documented as of this encounter Miscellaneous Notes * Telephone Encounter - Marybeth Betancourt M.A. - 02/21/2013 3:56 PM EDT Annual 03/25/[address] Cowan. CMB * Telephone Encounter - Rufina Najera - 02/21/2013 3:38 PM EDT WHEN WAS THE PATIENTS LAST ANNUAL SURGICAL SCRUB TECHNOLOGIST EXAM? 02/27/12 Does patient have an upcoming appointment? Yes 03/25/13 (THE MEDICATION REQUESTED IS ON THE MED LIST ABOVE) Did you check the Pharmacy information above?: YES Indicate how soon the patient needs the script: DAYO Patient would like script to be: E-PRESCRIBED/FAXED TO PHARMACY Is the doctor here today?: YES Can the message wait until the doctor returns?: NO Has the patient been told that the prescription will not be filled until the end of the day? YES Payor: STELLA Plan: POS $30 [place] [address] Product Type: POS [id number] documented in this encounter Plan of Treatment Not on file documented as of this encounter Visit Diagnoses Not on filedocumented in this encounter Care Teams Building Supplies Salesperson Retail Relationship Specialty Start Date End Date Lucia Chávez MD [address] [place] [phone] PCP - General 06/21/09 documented as of this encounter
--- OUTSIDE RECORDS SUMMARY | 2025-04-02 08:05 | XMS_ITS | Encounter Summary ---
Author Organization [facility] Prior to 02/22/2024 Address [address] [place] [address] Care Team Providers Care Lead Assembler Name Role Phone Lucia Chávez MD Primary Care Provider [phone] Encounter Details Date Type Department Care Team Description 12/14/2010 Hospital Medical Records [address] [place] [address] [facility] Social History Tobacco Use Types Packs/Day Years Used Date Smoking Tobacco: Never Smokeless Tobacco: Never Alcohol Use Standard Drinks/Week Comments No 0 (1 standard drink = 0.6 oz pur e alcohol) Sex Assigned at Date Recorded Not on file documented as of this encounter Plan of Treatment Not on file documented as of this encounter Visit Diagnoses Not on filedocumented in this encounter Care Teams Lead Assembler Relationship Specialty Start Date End Date Lucia Chávez MD [address] [place], [place] [phone] PCP - General 06/21/09 documented as of this encounter
--- OUTSIDE RECORDS SUMMARY | 2025-04-02 08:05 | XMS_ITS | Encounter Summary ---
Author Organization [employer] [facility] Prior to 02/22/2024 Address [address] [place] [address] Care Team Providers Care Sales And Marketing Representative Name Role Phone Lucia Chávez MD Primary Care Provider [phone] Encounter Details Date Type Department Care Team Description 03/04/2015 Release of Information Medical Records [address] [place] [id number] Abstract, Provider Social History Tobacco Use Types Packs/Day Years [...] on filedocumented in this encounter Care Teams Sales And Marketing Representative Relationship Specialty Start Date End Date Lucia Chávez MD [address] [place] [phone] PCP - General 06/21/09 documented as of this encounter
--- OUTSIDE RECORDS SUMMARY | 2025-04-02 08:05 | XMS_ITS | Encounter Summary ---
Author Organization [facility] Prior to 02/22/2024 Address [address] [place] [address] Care Team Providers Care Distribution District Supervisor Name Role Phone Lucia Chávez MD Primary Care Provider [phone] Encounter Details Date Type Department Care Team Description 01/17/2011 Hospital Medical Records [address] [place] [address] Jani Cowan MD Social History Tobacco Use Types Packs/Day Years [...] on filedocumented in this encounter Care Teams Distribution District Supervisor Relationship Specialty Start Date End Date Lucia Chávez MD [address], [place] [phone] PCP - General 06/21/09 documented as of this encounter
--- OUTSIDE RECORDS SUMMARY | 2025-04-02 08:06 | XMS_ITS | Encounter Summary ---
Author Organization [facility] Prior to 02/22/2024 Address [address] [place] [address] Care Team Providers Care Broadcast Field Supervisor Name Role Phone Lucia Chávez MD Primary Care Provider [phone] Encounter Details Date Type Department Care Team Description 05/31/2023 Orders Only Medical Records [address] [place] [id number] Abstract, Provider Social History Tobacco Use Types Packs/Day Years Used Date Smoking Tobacco: Never Smokeless Tobacco: Never Alcohol Use Standard Drinks/Week Comments No 0 (1 standard drink = 0.6 oz pur e alcohol) Sex Assigned at Date Recorded Not on file documented as of this encounter Plan of Treatment Not on file documented as of this encounter Procedures Procedure Name Priority Date/Time Associated Diagnosis Comments OUTSIDE PLAIN FILM Routine 05/26/2023 documented in this encounter Results * OUTSIDE PLAIN FILM (05/26/2023) Provider Abstract RADIOLOGY documented in this encounter Visit Diagnoses Not on filedocumented in this encounter Care Teams Broadcast Field Supervisor Relationship Specialty Start Date End Date Lucia Chávez MD [address] [place], [place] [phone] PCP - General 06/21/09 documented as of this encounter
--- OUTSIDE RECORDS SUMMARY | 2025-04-02 08:06 | XMS_ITS | Encounter Summary ---
Author Organization [facility] Prior to 02/22/2024 Address [address] [place] [address] Care Team Providers Care Housekeeper Child Care Name Role Phone Lucia Chávez MD Primary Care Provider [phone] Encounter Details Date Type Department Care Team Description 06/11/2023 Orders Only Medical Records [address] [place] [address] Clayton Long MD Social History Tobacco Use Types Packs/Day [...] Name Priority Date/Time Associated Diagnosis Comments OUTSIDE ULTRASOUND Routine 06/01/2023 documented in this encounter Results * OUTSIDE ULTRASOUND (06/01/2023) Clayton Long MD RADIOLOGY documented in this encounter Visit Diagnoses Not on filedocumented in this encounter Care Teams Housekeeper Child Care Relationship Specialty Start Date End Date Lucia Chávez MD [address] [place] [address] PCP - General 06/21/09 documented as of this encounter
[2025-04-02 08:07] VITALS: BMI 23.2
== END 2025-04-02 08:34 | disposition home or self-care (01) ==
LOC: HO.HGS 07:57
PROVIDERS: PCP Physician Assistant Medical; Visit Provider Surgery
DX: R92.1 Mammographic calcification found on diagnostic imaging of breast (principal)
CPT/HCPCS: 99203

== ENCOUNTER 2025-04-02 08:34 | Outpatient (REF) | payer BC, SELFPAY ==
--- NOTE | ~2025-04-02 | MM_ITS ---
EXAMINATION: STEREOTACTICALLY-GUIDED LEFT BREAST BIOPSY CLINICAL INFORMATION: Grouped calcifications retroareolar region of the left breast. COMPARISON: [facility] on PACS. INFORMED CONSENT: After the details of the procedure, as well as the risks (including, but not limited to, bleeding, hematoma formation, and infection), benefits and alternatives (including doing nothing, short-interval follow up, and surgery) to the procedure were explained to the patient in detail and all of her questions were answered, informed written consent was obtained. TECHNIQUE/FINDINGS: A timeout was performed confirming patients name date of side and site of procedure. The lesion intended for biopsy was identified stereotactically and targeted. The skin of the left breast was then cleansed with sterile solution. Using stereotactic guidance, aseptic technique, and 1% lidocaine with and without epinephrine for local anesthesia, a total of 12 cores were obtained through the targeted area with a 9-gauge vacuum-assisted Eviva core biopsy device from a inferior approach. Specimen radiography reveals the targeted calcifications in the sampled tissue. At the completion of tissue sampling, a single top hat-shaped metallic clip was deposited at the biopsy site. Adequate sampling was achieved. The postprocedure 2-view direct digital mammogram reveals satisfactory positioning of the biopsy clip. The patient tolerated the procedure well and, after assuring adequate hemostasis, was discharged in good condition after reviewing postbiopsy breast care instructions. Final pathology results are pending. MM/MM stereotactic biopsy LT IMPRESSION: 1. Uncomplicated stereotactically-guided core biopsy of the left breast. The 2-view direct digital postprocedure mammogram reveals satisfactory positioning of the biopsy clip. 2. Final pathology results are pending. A separate report with final recommendations will be issued once these results are made available. Electronically signed by: Juana Mukherjee DO 04/02/2025 10:35 AM [facility]
[2025-04-02] MEDS: Lidocaine HCl 1 % 20 ML VIAL 9 ML SUBCUT (09:39)
[2025-04-02] MEDS: Lidocaine HCl 1%/Epi 1:100,000 10 ML VIAL 9 ML SUBCUT (09:40)
== END 2025-04-02 08:35 | disposition home or self-care (01) ==
LOC: HO.MAMMO 08:34
PROVIDERS: PCP Physician Assistant Medical; Visit Provider Surgery
DX: R92.1 Mammographic calcification found on diagnostic imaging of breast (principal)
CPT/HCPCS: 19081; 88305; A4648; J2003; J2004

== ENCOUNTER → 2025-04-02 09:00 | Outpatient (BNV) | payer BC, SELFPAY | PROVIDERS: PCP Physician Assistant Medical; Visit Provider Internal Medicine | DX: R92.1 Mammographic calcification found on diagnostic imaging of breast (principal) | CPT/HCPCS: 19081 ==